=== PATIENT | female | born 1975 | race Caucasian/White ===

== ENCOUNTER 2017-03-25 23:09 | Inpatient (IN) | payer MEDICARE, OTHER ==
[2017-03-25] MEDS: LACTATED RINGER'S 1,000 ML IV (00:15)
[2017-03-25] MEDS ORDERED: LACTATED RINGER'S 1,000 ML IV (23:35)
[2017-03-26] MEDS ORDERED: LIDOCAINE 1% (MPF) 30 ML INJ INJ
[2017-03-26] MEDS ORDERED: IBUPROFEN 600 MG TAB PO
[2017-03-26] MEDS: AMPICILLIN 2 GM/NS (PMX) 100 ML IV (00:31)
[2017-03-26 00:32] LABS: ADD MAN DIFF? NO
[2017-03-26] MEDS: BUTORPHANOL 2 MG INJ IV ×2 (00:46→04:12)
[2017-03-26 00:52] LABS: INR 0.89; PARTIAL THROMBOPLASTIN TIME 27.5 Sec (25.0-35.0); PROTIME 12.1 Sec (11.9-14.9); PT RATIO 0.9
[2017-03-26 00:59] LABS: WHITE BLOOD COUNT 13.5 10^3/ul (4.8-10.8)
[2017-03-26 00:59] LABS: BASOPHILS % 0.1 % (0.0-2.0); EOSINOPHILS % 0.1 % (0.0-7.0); HEMATOCRIT 32.8 % (37.0-47.0); HEMOGLOBIN 10.8 g/dl (12.0-16.0); LYMPHOCYTES # 0.9 10^3/ul (0.8-2.9); LYMPHOCYTES % 6.8 % (15.0-51.0); MEAN CORPUSCULAR HEMOGLOBIN 30.5 pg (29.0-33.0); MEAN CORPUSCULAR HGB CONC 32.9 g/dl (32.0-37.0); MEAN CORPUSCULAR VOLUME 92.7 fl (82.0-101.0); MEAN PLATELET VOLUME 11.6 fl (7.4-10.4); MONOCYTE # 0.9 10^3/ul (0.3-0.9); MONOCYTES % 6.4 % (0.0-11.0); NEUTROPHIL # 11.5 10^3/ul (1.6-7.5); NEUTROPHILS % 85.7 % (39.0-77.0); PLATELET COUNT 194 10^3/UL (140-415); RED BLOOD COUNT 3.54 10^6/ul (4.20-5.40); RED CELL DISTRIBUTION WIDTH 12.8 % (11.5-14.5)
[2017-03-26] MEDS: AMPICILLIN 1 GM/NS (PMX) 50 ML IV (04:15)
[2017-03-26] MEDS: OXYTOCIN 30 UNITS/LR 500 ML IV ×2 (07:01→07:39)
[2017-03-26] MEDS ORDERED: CARBOPROST 250 MCG INJ IM ×2 (07:30)
[2017-03-26] MEDS ORDERED: OXYTOCIN 30 UNITS/LR 500 ML IV ×3 (07:30)
[2017-03-26] MEDS ORDERED: MISOPROSTOL 200 MCG TAB PR ×2 (07:30)
[2017-03-26] MEDS ORDERED: METHYLERGONOVINE 0.2 MG INJ IM ×2 (07:30)
[2017-03-26] MEDS: IBUPROFEN 600 MG TAB PO ×3 (07:34→18:14)
[2017-03-26] MEDS: OXYCODONE/ASPIRIN (4.88/325) TAB PO (09:15)
[2017-03-26] MEDS: LACTATED RINGER'S 1,000 ML IV* ×2 (12:11→15:14)
[2017-03-26] MEDS: LANOLIN 7 GM TUBE TOP (12:12)
[2017-03-26 15:35] LABS: RAPID PLASMA REAGIN NONREACTIVE (NR)
[2017-03-27] MEDS: IBUPROFEN 600 MG TAB PO ×5 (00:37→18:09)
[2017-03-27 08:28] LABS: ADD MAN DIFF? NO
[2017-03-27 08:30] LABS: BASOPHILS % 0.3 % (0.0-2.0); EOSINOPHILS # 0.2 10^3/ul (0.0-0.5); EOSINOPHILS % 1.7 % (0.0-7.0); HEMATOCRIT 30.8 % (37.0-47.0); LYMPHOCYTES # 1.4 10^3/ul (0.8-2.9); LYMPHOCYTES % 12.1 % (15.0-51.0); MEAN CORPUSCULAR HEMOGLOBIN 30.7 pg (29.0-33.0); MEAN CORPUSCULAR HGB CONC 32.5 g/dl (32.0-37.0); MEAN CORPUSCULAR VOLUME 94.5 fl (82.0-101.0); MEAN PLATELET VOLUME 11.1 fl (7.4-10.4); MONOCYTE # 0.7 10^3/ul (0.3-0.9); MONOCYTES % 5.8 % (0.0-11.0); NEUTROPHIL # 9.1 10^3/ul (1.6-7.5); NEUTROPHILS % 79.1 % (39.0-77.0); PLATELET COUNT 189 10^3/UL (140-415); RED BLOOD COUNT 3.26 10^6/ul (4.20-5.40); RED CELL DISTRIBUTION WIDTH 12.8 % (11.5-14.5)
[2017-03-27 08:30] LABS: WHITE BLOOD COUNT 11.5 10^3/ul (4.8-10.8)
[2017-03-28] MEDS: IBUPROFEN 600 MG TAB PO ×3 (00:42→12:09)
[2017-03-28] MEDS ORDERED: DIPHTH/TET/ACEL PERTUSS (ADULT) 0.5 ML VIAL IM* (09:00)
== END 2017-03-28 17:20 | disposition home or self-care (01) | DRG 775 ==
LOC: OBT 23:09 → L-D 03-26 → PP1 03-26 08:41 → OBT 23:43 → L-D 23:44
PROVIDERS: Obstetrics & Gynecology
PROC: 10E0XZZ Delivery of Products of Conception, External Approach (ICD-10-PCS; principal; 2017-03-26)
PROC: 4A1HXCZ Monitoring of Products of Conception, Cardiac Rate, External Approach (ICD-10-PCS; 2017-03-26)
DX: O99.824 Streptococcus B carrier state complicating childbirth (principal); O70.0 First degree perineal laceration during delivery; Z3A.39 39 weeks gestation of pregnancy; Z37.0 Single live birth
CPT/HCPCS: 85025; 85610; 85730; 86592; 86850; 86900; 86901

== ENCOUNTER 2017-09-30 11:02 | Day surgery (SDC) | payer MEDICARE, OTHER ==
[2017-09-30] MEDS: LIDOCAINE 1%/EPI 30 ML INJ
[~2017-09-30 11:02] MED LIST: CEFAZOLIN 1 GM INJ; DEXAMETHASONE 4 MG/ML 1 ML INJ; FENTAnyl 50 MCG/ML VIAL; GLYCOPYRROLATE 0.4 MG INJ; LIDOCAINE 2% (SDV) 5 ML INJ; MIDAZOLAM 1 MG/ML 2 ML INJ; NEOSTIGMINE 3 MG/3 ML SYRINGE; ONDANSETRON 4 MG INJ; PROPOFOL 20 ML; ROCURONIUM 50 MG INJ
[2017-09-30 12:07] LABS: ADD MAN DIFF? NO
[2017-09-30 12:13] LABS: WHITE BLOOD COUNT 4.1 10^3/ul (4.8-10.8)
[2017-09-30 12:13] LABS: BASOPHILS % 0.5 % (0.0-2.0); EOSINOPHILS # 0.1 10^3/ul (0.0-0.5); EOSINOPHILS % 3.4 % (0.0-7.0); HEMATOCRIT 32.2 % (37.0-47.0); HEMOGLOBIN 10.3 g/dl (12.0-16.0); LYMPHOCYTES # 1.7 10^3/ul (0.8-2.9); LYMPHOCYTES % 40.4 % (15.0-51.0); MEAN CORPUSCULAR HEMOGLOBIN 29.6 pg (29.0-33.0); MEAN CORPUSCULAR VOLUME 92.5 fl (82.0-101.0); MEAN PLATELET VOLUME 11.1 fl (7.4-10.4); MONOCYTE # 0.4 10^3/ul (0.3-0.9); MONOCYTES % 9.7 % (0.0-11.0); NEUTROPHIL # 1.9 10^3/ul (1.6-7.5); NEUTROPHILS % 45.8 % (39.0-77.0); PLATELET COUNT 207 10^3/UL (140-415); RED BLOOD COUNT 3.48 10^6/ul (4.20-5.40); RED CELL DISTRIBUTION WIDTH 11.8 % (11.5-14.5)
[2017-09-30 12:18] LABS: ADD UMIC NO; HOLD TRANSMISSIONS 1; UR ASCORBIC ACID NEGATIVE (NEGATIVE); UR BILIRUBIN (Dip) NEGATIVE (NEGATIVE); UR BLOOD (Dip) NEGATIVE (NEGATIVE); UR CLARITY CLEAR (CLEAR); UR COLOR YELLOW (YELLOW); UR GLUCOSE (Dip) NEGATIVE (NEGATIVE); UR KETONES (Dip) NEGATIVE (NEGATIVE); UR LEUKOCYTE ESTERASE (Dip) NEGATIVE Leu/ul (NEGATIVE); UR NITRITE (Dip) NEGATIVE (NEGATIVE); UR SPECIFIC GRAVITY (Dip) 1.021 (1.003-1.030); UR TOTAL PROTEIN (Dip) NEGATIVE (NEGATIVE); UR UROBILINOGEN (Dip) NEGATIVE (NEGATIVE)
[2017-09-30 12:34] LABS: INR 1.01; PROTIME 13.4 Sec (11.9-14.9)
[2017-09-30 12:35] LABS: PARTIAL THROMBOPLASTIN TIME 28.7 Sec (25.0-35.0)
[2017-09-30] MEDS ORDERED: EPHEDrine SULFATE 50 MG/5 ML SYG IV (13:00)
[2017-09-30] MEDS ORDERED: LABETALOL HCL 20MG INJ IV (13:00)
[2017-09-30] MEDS ORDERED: OXYCODONE/ACETAMINOPHEN (5/325) TAB PO (13:00)
[2017-09-30] MEDS ORDERED: ATROPINE 1 MG/10 ML SYRINGE IV (13:00)
[2017-09-30] MEDS ORDERED: morphine (1 MG/ML) 10ML SYRINGE IV ×3 (13:00)
[2017-09-30] MEDS ORDERED: MEPERIDINE 25 MG INJ IV (13:00)
[2017-09-30] MEDS ORDERED: FENTAnyl 50 MCG/ML VIAL IV (13:00)
[2017-09-30] MEDS ORDERED: DIPHENHYDRAMINE 50 MG INJ IV (13:00)
[2017-09-30] MEDS ORDERED: hydrALAzine 20 MG INJ IV (13:00)
[2017-09-30] MEDS ORDERED: HYDROmorphONE 1 MG/5 ML IV SYRINGE IV ×2 (13:00)
[2017-09-30] MEDS ORDERED: MIDAZOLAM 1 MG/ML 2 ML INJ IV (13:00)
[2017-09-30] MEDS: LACTATED RINGER'S 1,000 ML IV (15:00)
[2017-09-30] MEDS: FENTAnyl 50 MCG/ML VIAL IV (15:40)
[2017-09-30] MEDS: ONDANSETRON 4 MG INJ IV (15:40)
[2017-09-30] MEDS: HYDROmorphONE 1 MG/5 ML IV SYRINGE IV (16:20)
[2017-09-30] MEDS: OXYCODONE/ACETAMINOPHEN (5/325) TAB PO (16:58)
== END 2017-09-30 20:18 | disposition home or self-care (01) ==
LOC: SDS 11:02
DX: N81.10 Cystocele, unspecified (principal); N81.6 Rectocele
CPT/HCPCS: 57260; 81003; 84703; 85025; 85610; 85730; 88305